=== PATIENT | female | born 1995 | race Caucasian/White ===

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

== ENCOUNTER 2017-06-13 15:26 | Emergency (ER) | payer OTHER ==
[~2017-06-13] VITALS: Ht 152.4 cm; Wt 65.0 kg
[~2017-06-13 15:26] MED LIST changes: +PERM5CRE11 TOPICAL
[2017-06-13 15:27] VITALS: BP 117/64; PULSE 84; RESP 18; TEMP 98.8; O2SAT 98
--- NOTE | 2017-06-13 16:27 | PD ---
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 Patient is reporting that she has had 3 episodes of bleeding similar to her menses this month. She reports the bleeding is without clots. Using 3-4 pads per day. She denies being sexually active. She denies fever/chills, abdominal pain or vaginal discharge. She reports mild left flank pain which is intermittent for 2 weeks. symptom severity mild. no alleviating factors. PFSH Past Medical History Asthma: Yes (THINKS SHE HAS ASTHMA) Anxiety: Yes Developmental Delay: No Diminished Hearing: No Immunizations Current: Yes ?: Unknown LMP: 06/11/17 Past Surgical History Ear Surgery: Yes (TUBES IN EARS ) Tonsillectomy: Yes (AND ADNOIDS) Tympanostomy Tube: Yes (tubes in joann ears) Social History Alcohol Use: No Tobacco Use: No Substance Use: No Allergies-Medications (Allergen,Severity, Reaction): Coded Allergies: No Known Allergies (Verified , 12/10/16) Reported Meds & Prescriptions Reported Meds & Active Scripts Active Elimite Topical (Permethrin) 5% Cream 1 Applic TOPICAL ONCE Betamethasone Dipropionate Topical 0.05% Cream 1 Applic TOPICAL BID apply to hands only Pepcid (Famotidine) 20 Mg Tab 20 Mg PO BID Medrol Dosepak (Methylprednisolone) 4 Mg Dspk 4 Mg PO DIRECTED Per Pharmacist direction Review of Systems Except as stated in HPI: all other systems reviewed are Neg Physical Exam Narrative GENERAL: alert well appearing female in no acute distress. Patient resting on stretcher texting on her cell phone, laughing with 2 female friends in the room. SKIN: Warm and dry. HEAD: Normocephalic. EYES: No scleral icterus. No injection or drainage. NECK: Supple, trachea midline. No JVD or lymphadenopathy. CARDIOVASCULAR: Regular rate and rhythm without murmurs, gallops, or rubs. RESPIRATORY: Breath sounds equal bilaterally. No accessory muscle use. GASTROINTESTINAL: Abdomen soft, non-tender, nondistended. : Normal external genitalia without lesions. Small amount of vaginal bleeding within the vault. Cervical os closed. No cervicitis. No CMT. No adnexal mass or tenderness. No enlargement of the uterus. MUSCULOSKELETAL: No cyanosis, or edema. BACK: Nontender without obvious deformity. No CVA tenderness. Data Data Last Documented VS Vital Signs Date Time Temp Pulse Resp B/P (MAP) Pulse Ox O2 Delivery O2 Flow Rate FiO2 06/13/17 16:29 100 Room Air 06/13/17 15:27 98.8 84 18 Orders Orders Basic Metabolic Panel (Bmp) (06/13/17 16:18) Complete Blood Count With Diff (06/13/17 16:18) Iv Access Insert/Monitor (06/13/17 16:18) Ecg Monitoring (06/13/17 16:18) Oximetry (06/13/17 16:18) Sodium Chloride 0.9% Flush (Ns Flush) (06/13/17 16:30) Ed Urine Pregnancytest Poc (06/13/17 16:18) Urinalysis - C+S If Indicated (06/13/17 16:27) Labs Laboratory Tests Test 06/13/17 16:20 06/13/17 16:30 Urine Color YELLOW Urine Turbidity HAZY Urine pH 6.5 Urine Specific [place] 1.013 Urine Protein TRACE mg/dL Urine Glucose (UA) NEG mg/dL Urine Ketones NEG mg/dL Urine Occult Blood LARGE Urine Nitrite NEG Urine Bilirubin NEG Urine Urobilinogen LESS THAN 2.0 MG/DL Urine Leukocyte Esterase NEG Urine RBC /hpf Urine Squamous Epithelial Cells 3 /hpf Urine Bacteria FEW /hpf Urine Mucus MOD /lpf Microscopic Urinalysis Comment CULT NOT INDICATED White Blood Count 5.2 TH/MM3 Red Blood Count 5.23 MIL/MM3 Hemoglobin 14.9 GM/DL Hematocrit 44.8 % Mean Corpuscular Volume 85.7 FL Mean Corpuscular Hemoglobin 28.5 PG Mean Corpuscular Hemoglobin Concent 33.2 % Red Cell Distribution Width 13.7 % Platelet Count 231 TH/MM3 Mean Platelet Volume 7.8 FL Neutrophils (%) (Auto) 58.5 % Lymphocytes (%) (Auto) 29.2 % Monocytes (%) (Auto) 10.2 % Eosinophils (%) (Auto) 1.6 % Basophils (%) (Auto) 0.5 % Neutrophils # (Auto) 3.1 TH/MM3 Lymphocytes # (Auto) 1.5 TH/MM3 Monocytes # (Auto) 0.5 TH/MM3 Eosinophils # (Auto) 0.1 TH/MM3 Basophils # (Auto) 0.0 TH/MM3 CBC Comment DIFF FINAL Differential Comment Blood Urea Nitrogen 10 MG/DL Creatinine 0.72 MG/DL Random Glucose 84 MG/DL Calcium Level 8.8 MG/DL Sodium Level 138 MEQ/L Potassium Level 3.7 MEQ/L Chloride Level 105 MEQ/L Carbon Dioxide Level 29.5 MEQ/L Anion Gap 4 MEQ/L Estimat Glomerular Filtration Rate 104 ML/MIN MDM Medical Decision Making Medical Screen Exam Complete: Yes Emergency Medical Condition: Yes Differential Diagnosis Dysfunctional uterine bleeding, menses, ectopic Narrative Course 21 year old female here for eval of vaginal bleeding x 3 days. Patient reports she has had 3 episodes similar to her menses this month. She denies dizziness, headache, chest pain, SOB, ABD pain, vaginal discharge. Her exam is consistent with a normal menstrual period no evidence of cervicitis or cervical motion tenderness. Urine negative CBC: Unremarkable. No anemia BMP: Unremarkable UA: Negative for infection Patient is referred to outpatient INSURANCE PROFESSIONAL follow-up. Return precautions discussed. 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 Return to the emergency department if he developed new or worsening symptoms. Disposition: 01 DISCHARGE HOME Condition: Stable Jennifer Kimbrough Jun 13, 2017 16:27
[2017-06-13 16:29] VITALS: O2SAT 100
[2017-06-13] MEDS ORDERED: SODIUM CHLORIDE 0.9% FLUSH 10 ML FLUSH IV FLUSH PRN (16:30)
[2017-06-13 16:44] LABS: AUTOMATED NEUTROPHIL # 3.1 TH/MM3 (1.8-7.7); BASOPHIL % 0.5 % (0.0-2.0); EOSINOPHIL # 0.1 TH/MM3 (0-0.4); EOSINOPHIL % 1.6 % (0.0-4.0); HEMATOCRIT 44.8 % (35.0-46.0); HEMOGLOBIN 14.9 GM/DL (11.6-15.3); LYMPH % 29.2 % (9.0-44.0); LYMPHOCYTE # 1.5 TH/MM3 (1.0-4.8); MEAN CELL VOLUME 85.7 FL (80.0-100.0); MEAN CORPUSCULAR HEMOGLOBIN 28.5 PG (27.0-34.0); MEAN CORPUSCULAR HGB CONC 33.2 % (32.0-36.0); MEAN PLATELET VOLUME 7.8 FL (7.0-11.0); MONO % 10.2 % (0.0-8.0); MONOCYTE # 0.5 TH/MM3 (0-0.9); NEUT % 58.5 % (16.0-70.0); PLATELET COUNT 231 TH/MM3 (150-450); RED BLOOD COUNT 5.23 MIL/MM3 (4.00-5.30); RED CELL DISTRIBUTION WIDTH 13.7 % (11.6-17.2); WHITE BLOOD COUNT 5.2 TH/MM3 (4.0-11.0)
[2017-06-13 16:57] LABS: BICARBONATE 29.5 MEQ/L (21.0-32.0); CALCIUM 8.8 MG/DL (8.5-10.1); CREATININE 0.72 MG/DL (0.50-1.00)
[2017-06-13 17:09] LABS: BACTERIA, URINE FEW /hpf; BILIRUBIN, URINE NEG (NEG); BLOOD, URINE LARGE (NEG); GLUCOSE,URINE NEG (NEG); KETONE, URINE NEG (NEG); MUCUS URINE MOD /lpf (OCC); NITRITE,URINE NEG (NEG); PH, URINE 6.5 (5.0-8.5); SQUAMOUS EPITHELIAL CELL URINE 3 /hpf (0-5); URINE COLOR YELLOW (YELLW/STRAW); URINE LEUKOCYTE ESTERASE NEG (NEG)
[2017-06-13 18:12] VITALS: BP 109/56
== END 2017-06-13 18:21 | disposition home or self-care (01) ==
LOC: NEPD 15:26
DX: N93.9 Abnormal uterine and vaginal bleeding, unspecified (principal); F41.9 Anxiety disorder, unspecified
CPT/HCPCS: 80048; 81001; 84703; 85025; 99284